=== PATIENT | male | born 1970 | race Caucasian/White ===

== ENCOUNTER → 2017-04-04 | Outpatient (CLI) | payer MEDICAID ==
[~2017-04-04] MED LIST: GADOBUTROL 10 ML VIAL IVP ONE
== END ==
LOC: FIMAGING 19:18
PROVIDERS: ATTEND Psychiatry & Neurology Neurology
DX: M54.14 Radiculopathy, thoracic region (principal); R68.89 Other general symptoms and signs
CPT/HCPCS: A9585

== ENCOUNTER 2017-06-05 21:27 | Emergency (ER) | payer MEDICAID ==
[2017-06-05 21:40] VITALS: TEMP 98.2
[2017-06-05] MEDS ORDERED: NS 1,000 ML IV ONE (22:23)
[2017-06-05 23:01] LABS: % IMMATURE GRANULYOCYTES 0.3 % (0.0-1.1); ABSOLUTE IMMATURE GRANULOCYTES 0.02 10^3/uL (0.00-0.10); ADD DIFF? NO; ADD MORPH? NO; ADD SCAN? NO; ATYPICAL LYMPHOCYTE FLAG 0 (0-99); FRAGMENT RBC FLAG 0 (0-99); HEMATOCRIT 42.4 % (40.0-51.0); HEMOGLOBIN 14.7 g/dL (13.7-17.5); LEFT SHIFT FLG 0 (0-99); LIPEMIA HEMOLYSIS FLAG 90 (0-99); MEAN CELL HEMOGLOBIN 30.2 pg (27.9-34.1); MEAN CELL HEMOGLOBIN CONCENTR. 34.7 g/dL (32.4-36.7); MEAN CELL VOLUME 87.1 fL (81.5-99.8); MEAN PLATELET VOLUME 10.1 fL (8.7-11.7); PLATELET CLUMPS FLAG 0 (0-99); PLATELET COUNT 244 10^3/uL (150-400); RED BLOOD CELL COUNT 4.87 10^6/uL (4.40-6.38); RED CELL DISTRIBUTION WIDTH 12.6 % (11.5-15.2)
[2017-06-05 23:08] LABS: ANION GAP 12 mEq/L (8-16); CALCIUM 9.2 mg/dL (8.5-10.4); CARBON DIOXIDE 18 mEq/l (22-31); CHLORIDE 110 mEq/L (97-110); CREATININE 1.3 mg/dL (0.7-1.3); GLOMERULAR FILTRATION RATE 60; GLUCOSE 84 mg/dL (70-100); POTASSIUM 3.8 mEq/L (3.5-5.2); SODIUM 140 mEq/L (134-144)
[2017-06-06] MEDS ORDERED: LIDOCAINE HCL 4% TOPICAL SOLN 50ML ONE (00:06)
[2017-06-06] MEDS ORDERED: HALOPERIDOL LACT 5 MG/ML INJ IVP ONE (00:12)
[2017-06-06] MEDS ORDERED: LIDOCAINE HCL 4% TOPICAL SOLN 50ML MM ONE (00:25)
[2017-06-06] MEDS ORDERED: NS 1,000 ML IV ONE (00:36)
[2017-06-06 00:37] VITALS: RESP 16
--- NOTE | 2017-06-06 00:58 | EDPHY ---
H & P Stated Complaint: frontal headache stabbing Time Seen by Provider: 06/05/17 22:30 HPI/ROS: Chief Complaint: Headache HPI: 46-year-old male presenting with intermittent headache on the left side of his head. Patient states that has been gradually worsening. It is intermittent, lasting for several seconds. It occurs about 20 times an hour. It is sharp electric type of pain in the left side. At worst is a 10 on 10. Right now he has none. Last occurred several minutes ago. Also been having some left eye blurring associated with this. He has a history of former cocaine use but has been clean for the last 11 months. Denies any fevers or chills. No nausea or vomiting. No neck pain. No numbness or weakness. ROS: 10 point Review of Systems is negative except as noted in the HPI. PMH: Denies Social History: No smoking, no alcohol, recovering cocaine abuse Family History: non-contributory Physical Exam: Gen: Awake, Alert, No Distress HEENT: Nose: no rhinorrhea Eyes: PERRLA, EOMI Mouth: Moist mucosa Neck: Supple, no JVD Chest: nontender, lungs clear to auscultation Heart: S1, S2 normal, no murmur Abd: Soft, non-tender, no guarding Back: no CVA tenderness, no midline tenderness Ext: no edema, non-tender Skin: no rash Neuro: CN II-XII intact, Sensation grossly intact, Strength 5/5 in bilateral upper and lower extremities - Personal History Current Tetanus/Diphtheria Vaccine: Yes Current Tetanus Diphtheria and Acellular Pertussis (TDAP): Yes Tetanus Vaccine Date: <10 yrs - Medical/Surgical History Hx Asthma: Yes Hx Chronic Respiratory Disease: No Hx Diabetes: No Hx Cardiac Disease: No Hx Renal Disease: No Hx Cirrhosis: No Hx Alcoholism: No Hx HIV/AIDS: No Hx Splenectomy or Spleen Trauma: No Other PMH: pancreatitis,cholecystectomy, idiopathic fibromyopathy/ HEMORRHOIDECTOMY. anxiety. transvers myelitis. drug addiction 10 mos clean - Social History Smoking Status: Former smoker Constitutional: Initial Vital Signs Temperature (C) 36.8 C 06/05/17 21:35 Heart Rate 85 06/05/17 21:35 Respiratory Rate 18 06/05/17 21:35 Blood Pressure 116/87 H 06/05/17 21:35 O2 Sat (%) 95 06/05/17 21:35 O2 Delivery Mode Non-Rebreather Mask O2 (L/minute) 15 Allergies/Adverse Reactions: pregabalin [From Lyrica] Allergy (Verified 07/05/16 06:58) Home Medications: Medication Instructions Recorded Albuterol [Proventil Neb] 2.5 mg IH DAILY PRN 06/28/16 traZODone [traZODONE 50MG (*)] 50 mg PO HS 06/28/16 Cyclobenzaprine 06/05/17 Fluvoxamine Maleate 06/05/17 Gralise 06/05/17 Lisinopril 06/05/17 Topiramate 06/05/17 Verapamil [Calan 80MG (*)] 80 mg PO TID #30 tab 06/06/17 Medical Decision Making - Diagnostics Imaging Results: Imaging Impressions Head CT 06/05/17 22:36 Impression: Normal CT of the head. Specifically, a headache source is not identified. Results called and discussed with Kaushal Cordero MD on 06/05/2017 at 23:01 Imaging: Discussed imaging studies w/ call center receptionist Radiologist ED Course/Re-evaluation: 46-year-old male with symptoms consistent cluster headaches. CT scan of the brain is negative. Will give oxygen, intranasal lidocaine and Haldol and reassess. 0100 patient is feeling significantly improved. Headache is nearly gone. Will discharge with follow up with primary care physician who if necessary can arrange for referral to Neurology. Will start patient on verapamil 80 mg 3 times a day as a preventative if his headaches return. - Data Points Laboratory Results: Laboratory Results 06/05/17 22:20 06/05/17 22:20 06/05/17 06/05/17 22:20 22:20 WBC 6.52 10^3/uL 10^3/uL (3.80-9.50) RBC 4.87 10^6/uL 10^6/uL (4.40-6.38) Hgb 14.7 g/dL g/dL (13.7-17.5) Hct 42.4 % % (40.0-51.0) MCV 87.1 fL fL (81.5-99.8) MCH 30.2 pg pg (27.9-34.1) MCHC 34.7 g/dL g/dL (32.4-36.7) RDW 12.6 % % (11.5-15.2) Plt Count 244 10^3/uL 10^3/uL (150-400) MPV 10.1 fL fL (8.7-11.7) Neut % (Auto) 55.0 % % (39.3-74.2) Lymph % (Auto) 32.4 % % (15.0-45.0) [place] % (Auto) 8.3 % % (4.5-13.0) Eos % (Auto) 3.2 % % (0.6-7.6) Baso % (Auto) 0.8 % % (0.3-1.7) Nucleat RBC Rel Count 0.0 % % (0.0-0.2) Absolute Neuts (auto) 3.59 10^3/uL 10^3/uL (1.70-6.50) Absolute Lymphs (auto) 2.11 10^3/uL 10^3/uL (1.00-3.00) Absolute Monos (auto) 0.54 10^3/uL 10^3/uL (0.30-0.80) Absolute Eos (auto) 0.21 10^3/uL 10^3/uL (0.03-0.40) Absolute Basos (auto) 0.05 10^3/uL 10^3/uL (0.02-0.10) Absolute Nucleated RBC 0.00 10^3/uL 10^3/uL (0-0.01) Immature Gran % 0.3 % % (0.0-1.1) Immature Gran # 0.02 10^3/uL 10^3/uL (0.00-0.10) Sodium 140 mEq/L mEq/L (134-144) Potassium 3.8 mEq/L mEq/L (3.5-5.2) Chloride 110 mEq/L mEq/L (97-110) Carbon Dioxide 18 mEq/l L mEq/l (22-31) Anion Gap 12 mEq/L mEq/L (8-16) BUN 18 mg/dL mg/dL (7-23) Creatinine 1.3 mg/dL mg/dL (0.7-1.3) Estimated GFR 60 Glucose 84 mg/dL mg/dL (70-100) Calcium 9.2 mg/dL mg/dL (8.5-10.4) Medications Given: Discontinued Medications Haloperidol Lactate (Haldol Injection) 2.5 mg IVP EDNOW ONE Stop: 06/06/17 00:13 Last Admin: 06/06/17 00:30 Dose: 2.5 mg Sodium Chloride (Ns) 1,000 mls @ 0 mls/hr IV ONCE ONE PRN Reason: Wide Open Stop: 06/05/17 22:24 Last Admin: 06/05/17 22:28 Dose: 1,000 mls Sodium Chloride (Ns) 1,000 mls @ 0 mls/hr IV ONCE ONE PRN Reason: Wide Open Stop: 06/06/17 00:37 Last Admin: 06/06/17 00:37 Dose: 1,000 mls Lidocaine HCl (Lidocaine Hcl 4% Topical Solution) 2 ml MM EDNOW ONE Stop: 06/06/17 00:26 Last Admin: 06/06/17 00:32 Dose: 2 ml Departure - Departure Disposition: Home, Routine, Self-Care Clinical Impression: Cluster headache Condition: Good Instructions: Cluster Headache (ED) Additional Instructions: If her headache returns she may take verapamil 80 mg 3 times a day to prevent further cluster headaches. Follow-up with primary care physician in 2-3 days for re-evaluation. Issue his continue you may require a referral to a neurologist. This can be arranged by her primary care physician. Return to the emergency department for increasing headache, nausea, vomiting, fevers, chills, or any other concerns. Referrals: TEREZA SILVEIRA [Primary Care Provider] - As per Instructions Prescriptions: Verapamil [Calan 80MG (*)] 80 mg PO TID #30 tab
[2017-06-06 01:48] VITALS: BP 113/77; PULSE 72; O2SAT 98
== END 2017-06-06 01:47 | disposition home or self-care (01) ==
DX: G44.009 Cluster headache syndrome, unspecified, not intractable (principal); J45.909 Unspecified asthma, uncomplicated; Z87.891 Personal history of nicotine dependence
CPT/HCPCS: 96374

== ENCOUNTER 2017-06-09 20:50 | Emergency (ER) | payer MEDICAID ==
--- NOTE | 2017-06-09 21:05 | CPEKG ---
Heart Rate: 88 RR Interval: 682 P-R Interval: 152 QRSD Interval: 114 QT Interval: 408 QTC Interval: 494 P [place]: 54 QRS [place]: -14 T Wave [place]: 6 EKG Severity - ABNORMAL ECG - EKG Impression: SINUS RHYTHM EKG Impression: IRBBB AND LPFB Electronically Signed By: Rohan Hampton 09-Jun-2017 21:10:50
[2017-06-09 21:30] LABS: HEMATOCRIT 41.8 % (40.0-51.0); HEMOGLOBIN 14.7 g/dL (13.7-17.5); MEAN CELL HEMOGLOBIN 30.2 pg (27.9-34.1); RED BLOOD CELL COUNT 4.86 10^6/uL (4.40-6.38)
[2017-06-09 21:31] LABS: % IMMATURE GRANULYOCYTES 0.4 % (0.0-1.1); ABSOLUTE IMMATURE GRANULOCYTES 0.03 10^3/uL (0.00-0.10); ADD DIFF? NO; ADD MORPH? NO; ADD SCAN? NO; ATYPICAL LYMPHOCYTE FLAG 0 (0-99); FRAGMENT RBC FLAG 0 (0-99); LEFT SHIFT FLG 0 (0-99); LIPEMIA HEMOLYSIS FLAG 90 (0-99); MEAN CELL HEMOGLOBIN CONCENTR. 35.2 g/dL (32.4-36.7); MEAN PLATELET VOLUME 10.1 fL (8.7-11.7); PLATELET CLUMPS FLAG 0 (0-99); PLATELET COUNT 257 10^3/uL (150-400); RED CELL DISTRIBUTION WIDTH 12.3 % (11.5-15.2)
[2017-06-09] MEDS ORDERED: KETOROLAC 30 MG/1 ML SDV IVP ONE (21:39)
[2017-06-09] MEDS ORDERED: METOCLOPRAMIDE 10 MG/2 ML VIAL IVP ONE (21:39)
[2017-06-09] MEDS ORDERED: DEXAMETHASONE 10 MG/ML VIAL IVP ONE (21:39)
[2017-06-09] MEDS ORDERED: NS 1,000 ML IV ONE (21:39)
--- NOTE | 2017-06-09 21:41 | EDPHY ---
H & P Stated Complaint: seen sunday cluster MASCORRO- tn CP, confusion, MASCORRO, photophobia Time Seen by Provider: 06/09/17 21:08 HPI/ROS: CHIEF COMPLAINT: Migraine HISTORY OF PRESENT ILLNESS: The patient is a 46-year-old man with a history of migraines who was seen here last week with frequent brief headaches and some pain in his right cheek. He was treated for cluster headaches. He states that his symptoms improved somewhat on fluoxetine and lisinopril. He developed a migraine however about an hour ago associated with photophobia and tracking of lights. He also developed an anxiety feeling comma chest discomfort and palpitations. He does not have any history of cardiac disease. He states that he is recovering drug abuser and has been clean for 11 months. He denies any recent drug or alcohol use. He denies any trauma. He denies recent fevers or infections. REVIEW OF SYSTEMS: Constitutional: denies: chills, fever, recent illness, recent injury EENTM: denies: blurred vision, double vision, nose congestion Respiratory: denies: cough, shortness of breath Cardiac: denies: chest pain, irregular heart rate, lightheadedness, palpitations Gastrointestinal/Abdominal: denies: abdominal pain, diarrhea, nausea, vomiting, blood streaked stools Genitourinary: denies: dysuria, frequency, hematuria, pain Musculoskeletal: denies: joint pain, muscle pain Skin: denies: lesions, rash, jaundice, bruising Neurological: denies: headache, numbness, paresthesia, tingling, dizziness, weakness Hematologic/Lymphatic: denies: blood clots, easy bleeding, easy bruising Immunologic/allergic: denies: HIV/AIDS, transplant EXAM: GENERAL: Well-appearing, well-nourished and in no acute distress. HEAD: Atraumatic, normocephalic. EYES: Pupils equal round and reactive to light, extraocular movements intact, sclera anicteric, conjunctiva are normal. ENT: TMs normal, nares patent, oropharynx clear without exudates. Moist mucous membranes. NECK: Normal range of motion, supple without lymphadenopathy or JVD. LUNGS: Breath sounds clear to auscultation bilaterally and equal. No wheezes rales or rhonchi. HEART: Regular rate and rhythm without murmurs, rubs or gallops. ABDOMEN: Soft, nontender, normoactive bowel sounds. No guarding, no rebound. No masses appreciated. BACK: No CVA tenderness, no spinal tenderness, step-offs or deformities EXTREMITIES: Normal range of motion, no pitting or edema. No clubbing or cyanosis. NEUROLOGICAL: Cranial nerves II through XII grossly intact. Normal speech, normal gait. 5/5 strength, normal movement in all extremities, normal sensation PSYCH: Normal mood, normal affect. SKIN: Warm, dry, normal turgor, no visible rashes or lesions. Source: Patient Exam Limitations: No limitations - Personal History Current Tetanus/Diphtheria Vaccine: Yes Current Tetanus Diphtheria and Acellular Pertussis (TDAP): Yes Tetanus Vaccine Date: <10 yrs - Medical/Surgical History Hx Asthma: Yes Hx Chronic Respiratory Disease: No Hx Diabetes: No Hx Cardiac Disease: No Hx Renal Disease: No Hx Cirrhosis: No Hx Alcoholism: No Hx HIV/AIDS: No Hx Splenectomy or Spleen Trauma: No Other PMH: pancreatitis,cholecystectomy, idiopathic fibromyopathy/ HEMORRHOIDECTOMY. anxiety. transvers myelitis. drug addiction 10 mos clean - Family History Significant Family History: No pertinent family hx - Social History Smoking Status: Former smoker Alcohol Use: Sober Drug Use: None Constitutional: Initial Vital Signs Temperature (C) 36.6 C 06/09/17 20:53 Heart Rate 94 06/09/17 20:53 Respiratory Rate 18 06/09/17 20:53 Blood Pressure 148/92 H 06/09/17 20:53 O2 Sat (%) 97 06/09/17 20:53 O2 Delivery Mode Room Air Allergies/Adverse Reactions: pregabalin [From Lyrica] Allergy (Verified 07/05/16 06:58) Home Medications: Medication Instructions Recorded Albuterol [Proventil Neb] 2.5 mg IH DAILY PRN 06/28/16 traZODone [traZODONE 50MG (*)] 50 mg PO HS 06/28/16 Cyclobenzaprine 06/05/17 Fluvoxamine Maleate 06/05/17 Gralise 06/05/17 Lisinopril 06/05/17 Topiramate 06/05/17 Verapamil [Calan 80MG (*)] 80 mg PO TID #30 tab 06/06/17 Metoclopramide [Reglan 10 mg tab 10 mg PO BID PRN #10 tab 06/09/17 (RX)] Medical Decision Making - Diagnostics EKG Interpretation: An EKG obtained and was read and documented in trace view. Please see trace view for full reading and report. Sinus rhythm, unchanged from previous right bundle branch block ED Course/Re-evaluation: 10:30 p.m. the patient is feeling much better. He is relieved with his test results thus far. He declines further blood work or testing. He is asking for oxygen because last time that made his headache better. He is slightly hypoxic when he is asleep and snores loudly. 11:00 p.m. the patient is feeling much better. He is sleepy however and would like to sleep here for another hour or 2 before going home. Otherwise I will prepare his paperwork for discharge. Dr. Cortez is aware if any problems arise. Differential Diagnosis: Partial list of the Differential diagnosis considered include but were not limited to; anxiety, migraine, cluster headache, and although unlikely based on the history and physical exam, I also considered acute coronary disease, PE, pneumothorax, arrhythmia, infection, trauma, tumor, seizure. - Data Points Laboratory Results: Laboratory Results 06/09/17 21:20 06/09/17 21:20 Medications Given: Discontinued Medications Dexamethasone (Decadron Injection) 10 mg IVP EDNOW ONE Stop: 06/09/17 21:40 Last Admin: 06/09/17 21:51 Dose: 10 mg Diphenhydramine HCl (Benadryl Injection) 25 mg IVP EDNOW ONE Stop: 06/09/17 21:40 Last Admin: 06/09/17 21:52 Dose: 25 mg Sodium Chloride (Ns) 1,000 mls @ 0 mls/hr IV ONCE ONE; Wide Open PRN Reason: Protocol Stop: 06/09/17 21:40 Last Admin: 06/09/17 21:48 Dose: 1,000 mls Ketorolac Tromethamine (Toradol) 30 mg IVP EDNOW ONE Stop: 06/09/17 21:40 Last Admin: 06/09/17 21:49 Dose: 30 mg Metoclopramide HCl (Reglan Injection) 10 mg IVP EDNOW ONE Stop: 06/09/17 21:40 Last Admin: 06/09/17 21:53 Dose: 10 mg Departure - Departure Disposition: Home, Routine, Self-Care Clinical Impression: Anxiety about health Migraine headache Qualifiers: Migraine type: unspecified Status migrainosus presence: without status migrainosus Intractability: not intractable Qualified Code(s): G43.909 - Migraine, unspecified, not intractable, without status migrainosus Condition: Fair Instructions: Migraine Headache (ED), Anxiety (ED) Referrals: TEREZA SILVEIRA [Primary Care Provider] - As per Instructions Prescriptions: Metoclopramide [Reglan 10 mg tab (RX)] 10 mg PO BID PRN #10 tab PRN Reason: Headache
[2017-06-09 21:56] LABS: ANION GAP 13 mEq/L (8-16); CALCIUM 9.6 mg/dL (8.5-10.4); CARBON DIOXIDE 18 mEq/l (22-31); CHLORIDE 112 mEq/L (97-110); CREATININE 1.2 mg/dL (0.7-1.3); GLOMERULAR FILTRATION RATE > 60; GLUCOSE 86 mg/dL (70-100); POTASSIUM 4.1 mEq/L (3.5-5.2); SODIUM 143 mEq/L (134-144)
[2017-06-09 22:07] LABS: TROPONIN I < 0.012 ng/mL (0-0.034)
[2017-06-09 23:22] VITALS: BP 140/96; PULSE 63; RESP 20; TEMP 98.1; O2SAT 95
== END 2017-06-09 23:22 | disposition home or self-care (01) ==
DX: G43.909 Migraine, unspecified, not intractable, without status migrainosus (principal); F41.9 Anxiety disorder, unspecified; E86.9 Volume depletion, unspecified
CPT/HCPCS: 96374; J1100; J1200; J1885; J2765

== ENCOUNTER 2017-06-16 06:22 | Emergency (ER) | payer MEDICAID ==
[2017-06-16 06:26] VITALS: TEMP 97.5
[2017-06-16] MEDS ORDERED: DEXAMETHASONE 10 MG/ML VIAL IVP ONE (06:58)
[2017-06-16] MEDS ORDERED: METOCLOPRAMIDE 10 MG/2 ML VIAL IVP ONE (06:58)
[2017-06-16] MEDS ORDERED: NS 1,000 ML IV ONE (06:58)
--- NOTE | 2017-06-16 07:14 | EDPHY ---
H & P Time Seen by Provider: 06/16/17 06:57 HPI/ROS: CHIEF COMPLAINT: Migraine headache HISTORY OF PRESENT ILLNESS: 46-year-old male with history of frequent migraine headaches presents with a typical migraine headache. Onset of headache 2 weeks ago. He was seen in this emergency department and given a prescription for verapamil. The verapamil has helped his almost daily headaches. However he awoke this morning at 6:00 a.m. with a severe left-sided frontal headache, associated with 1 episode of vomiting. He also has visual scotomata. No weakness or numbness. REVIEW OF SYSTEMS: Complete 10 system review of systems is negative except as noted in the HPI. Past Medical/Surgical History: Migraine headache asthma Social History: Former drug abuse, now sober Smoking Status: Former smoker Physical Exam: General Appearance: Alert, pleasant Eyes: Pupils equal and round, no conjunctival pallor or injection ENT, Mouth: Mucous membranes moist Neck: Normal inspection Respiratory: Lungs are clear to auscultation Cardiovascular: Regular rate and rhythm Gastrointestinal: Abdomen is soft and nontender Neurological: Alert, oriented x3, cranial nerves II through XII intact, motor 5 /5, sensory intact to light touch, normal gait Skin: Warm and dry, no rash Extremities: Nontender, no pedal edema Psychiatric: Mood and affect normal Constitutional: Initial Vital Signs Temperature (C) 36.4 C 06/16/17 06:24 Heart Rate 107 H 06/16/17 06:24 Respiratory Rate 18 06/16/17 06:24 Blood Pressure 110/91 H 06/16/17 06:24 O2 Sat (%) 96 06/16/17 06:24 O2 Delivery Mode Nasal Cannula O2 (L/minute) 2 Allergies/Adverse Reactions: pregabalin [From Lyrica] Allergy (Verified 06/16/17 06:26) Home Medications: Medication Instructions Recorded Albuterol [Proventil Neb] 2.5 mg IH DAILY PRN 06/28/16 traZODone [traZODONE 50MG (*)] 50 mg PO HS 06/28/16 Cyclobenzaprine 06/05/17 Fluvoxamine Maleate 06/05/17 Gralise 06/05/17 Lisinopril 06/05/17 Topiramate 06/05/17 Verapamil [Calan 80MG (*)] 80 mg PO TID #30 tab 06/06/17 Metoclopramide [Reglan 10 mg tab 10 mg PO BID PRN #10 tab 06/09/17 (RX)] Medical Decision Making ED Course/Re-evaluation: This patient presents with a typical migraine headache. Decadron, Benadryl and Reglan IV given. Oxygen 2 L by nasal cannula placed the patient request. 8:30 a.m.-feels much better after the IV medications and oxygen and would like to go home. Differential Diagnosis: Headache including but not limited to subarachnoid hemorrhage, migraine headache , tension headache and infectious causes such as meningitis, pharyngitis and sinusitis. - Data Points Medications Given: Discontinued Medications Dexamethasone (Decadron Injection) 10 mg IVP EDNOW ONE Stop: 06/16/17 06:59 Last Admin: 06/16/17 07:17 Dose: 10 mg Diphenhydramine HCl (Benadryl Injection) 25 mg IVP EDNOW ONE Stop: 06/16/17 06:59 Last Admin: 06/16/17 07:17 Dose: 25 mg Sodium Chloride (Ns) 1,000 mls @ 0 mls/hr IV ONCE ONE; Wide Open PRN Reason: Protocol Stop: 06/16/17 06:59 Last Admin: 06/16/17 07:18 Dose: 1,000 mls Metoclopramide HCl (Reglan Injection) 10 mg IVP EDNOW ONE Stop: 06/16/17 06:59 Last Admin: 06/16/17 07:17 Dose: 10 mg Departure - Departure Disposition: Home, Routine, Self-Care Clinical Impression: Migraine headache Qualifiers: Migraine type: without aura Status migrainosus presence: without status migrainosus Intractability: not intractable Qualified Code(s): G43.009 - Migraine without aura, not intractable, without status migrainosus Condition: Good Instructions: Migraine Headache (ED) Additional Instructions: Keep your appointment with the neurologist as scheduled. Return with any concerns. Referrals: TEREZA SILVEIRA [Primary Care Provider] - As per Instructions Migue Serrato MD [Medical Doctor] - As per Instructions
[2017-06-16 08:08] VITALS: BP 126/81; PULSE 76; RESP 16; O2SAT 98
== END 2017-06-16 08:37 | disposition home or self-care (01) ==
DX: G43.009 Migraine without aura, not intractable, without status migrainosus (principal); E86.9 Volume depletion, unspecified; Z87.891 Personal history of nicotine dependence
CPT/HCPCS: 96374; J1100; J1200; J2765

== ENCOUNTER 2017-12-04 01:22 | Emergency (ER) | payer MEDICAID ==
--- NOTE | 2017-12-04 01:45 | EDPHY ---
H & P Stated Complaint: r foot pain no trauma HPI/ROS: HPI CHIEF COMPLAINT: Right foot pain. HISTORY OF PRESENT ILLNESS: This patient is a 47-year-old male presents emergency room right foot pain. He states he has had right foot pain for 3 days. It is located on the plantar region of his right foot lateral aspect towards the front of his foot. He denies any trauma. States is unclear if he injured his foot. He denies any fever abnormal swelling. He states progressively gotten worse worse when he ambulates and walks on his foot. Clinically when I press in the bottom his foot at the plantar region this gives him discomfort is reproducible on exam. I do not appreciate a swelling, redness, foreign body. Past Medical History: History of migraine headaches, asthma Past Surgical History: Gallbladder removal. Social History: History of drug abuse. Sober. Family History: Noncontributory ROS REVIEW OF SYSTEMS: A comprehensive 10 point review of systems is otherwise negative aside from elements mentioned in the history of present illness. Exam Constitutional triage nursing summary reviewed, vital signs reviewed, awake/ alert. Eyes normal conjunctivae and sclera, EOMI, PERRLA. HENT normal inspection, atraumatic, moist mucus membranes, no epistaxis, neck supple/ no meningismus, no raccoon eyes. Respiratory clear to auscultation bilaterally, normal breath sounds, no respiratory distress, no wheezing. Cardiovascular rate normal, regular rhythm, no murmur, no edema, distal pulses normal. Gastrointestinal soft, non-tender, no rebound, no guarding, normal bowel sounds, no distension, no pulsatile mass. Genitourinary no CVA tenderness. Musculoskeletal right foot: Neurovascularly intact. Good distal pulse. Good cap refill. Warm foot, warm extremity, no abnormal swelling. Focal tenderness in 1 particular area along the plantar region towards the front of the foot right lateral aspect. Reproducible on exam no foreign bodies palpated. no midline vertebral tenderness, full range of motion, no calf swelling, no tenderness of extremities, no meningismus, good pulses, neurovascularly intact. Skin pink, warm, & dry, no rash, skin atraumatic. Neurologic awake, alert and oriented x 3, AAOx3, moves all 4 extremities equally, motor intact, sensory intact, CN II-XII intact, normal cerebellar, normal vision, normal speech. Psychiatric normal mood/affect. Heme/Lymph/Immune no lymphadenopathy. Differential Diagnosis: Includes but is not limited to in a particular order, foot contusion, fracture, plantar fasciitis, soft tissue injury, foreign body Medical Decision Making: Plan for this patient recommend anti-inflammatory pain medicine, x-ray right foot. Re-evaluate. Re-evaluation: X-ray of the right foot unremarkable. I do not appreciate foreign bodies or bony abnormality. Patient be placed in a walking boot. I recommend anti-inflammatory pain medicine. I also given instructions on plantar fasciitis. Recommend following up with Podiatry. Recommend icing his foot and staying off of it. Return precautions discussed he understands. Clinically most likely has plantar fasciitis. Source: Patient - Personal History Current Tetanus/Diphtheria Vaccine: Yes Current Tetanus Diphtheria and Acellular Pertussis (TDAP): Yes Tetanus Vaccine Date: <10 yrs - Medical/Surgical History Hx Asthma: Yes Hx Chronic Respiratory Disease: No Hx Diabetes: No Hx Cardiac Disease: No Hx Renal Disease: No Hx Cirrhosis: No Hx Alcoholism: No Hx HIV/AIDS: No Hx Splenectomy or Spleen Trauma: No Other PMH: pancreatitis,cholecystectomy, idiopathic fibromyopathy/ HEMORRHOIDECTOMY. anxiety, migraines. transvers myelitis. drug addiction 10 mos clean - Social History Smoking Status: Former smoker Constitutional: Initial Vital Signs Temperature (C) 36.5 C 12/04/17 01:31 Heart Rate 87 12/04/17 01:31 Respiratory Rate 18 12/04/17 01:31 Blood Pressure 115/78 12/04/17 01:31 O2 Sat (%) 97 12/04/17 01:31 O2 Delivery Mode Room Air Allergies/Adverse Reactions: pregabalin [From Lyrica] Allergy (Verified 06/16/17 06:26) Home Medications: Medication Instructions Recorded Albuterol [Proventil Neb] 2.5 mg IH DAILY PRN 06/28/16 traZODone [traZODONE 50MG (*)] 50 mg PO HS 06/28/16 Fluvoxamine Maleate 06/05/17 Gralise 06/05/17 Topiramate 06/05/17 Verapamil [Calan 80MG (*)] 80 mg PO TID #30 tab 06/06/17 Ibuprofen [Motrin (*)] 800 mg PO Q6-8PRN #10 tab 12/04/17 Medical Decision Making - Data Points Medications Given: Discontinued Medications Ibuprofen (Motrin) 800 mg PO EDNOW ONE Stop: 12/04/17 01:53 Last Admin: 12/04/17 01:55 Dose: 800 mg Departure - Departure Disposition: Home, Routine, Self-Care Clinical Impression: Foot pain, right Condition: Good Instructions: Arthralgia (ED), Plantar Fasciitis (ED) Additional Instructions: 1. Anti-inflammatory pain medicine. Ibuprofen. 2. Ice your foot. 3. Stay off it. 4. Follow up with Podiatry 5. return to the er if worsening symptoms Referrals: TEREZA SILVEIRA [Primary Care Provider] - As per Instructions Linda Meyer DPM [Doctor of Podiatric Medicine] - As per Instructions Prescriptions: Ibuprofen [Motrin (*)] 800 mg PO Q6-8PRN #10 tab
[2017-12-04] MEDS ORDERED: IBUPROFEN 800 MG TAB PO ONE (01:52)
[2017-12-04 02:59] VITALS: BP 144/76; PULSE 74; RESP 16; TEMP 97.9; O2SAT 93
== END 2017-12-04 02:59 | disposition home or self-care (01) ==
DX: M79.671 Pain in right foot (principal); J45.909 Unspecified asthma, uncomplicated; Z87.891 Personal history of nicotine dependence
CPT/HCPCS: L4386

== ENCOUNTER 2018-03-13 14:47 | Emergency (ER) | payer MEDICAID ==
[2018-03-13] MEDS ORDERED: TDAP ADULT 0.5 ML INJ (BOOSTRIX) IM ONE (15:11)
--- NOTE | 2018-03-13 15:26 | EDPHY ---
H & P Time Seen by Provider: 03/13/18 14:54 HPI/ROS: CHIEF COMPLAINT: Laceration right index finger HISTORY OF PRESENT ILLNESS: 47-year-old male with out-of-date tetanus sustained accidental laceration to his right index finger distal phalanx palmar aspect and he was using a butchers blade cutting meat. No paresthesia. Occurred shortly prior to arrival. PHYSICAL EXAM (Prior to examination, patient consented to physical exam, hands were washed and my usual and customary physical exam procedures followed) 1) GENERAL: Well-developed, well-nourished, alert and oriented. Appears anxious. 2) HEAD: Normocephalic 3) HEENT: sclera anicteric 4) LUNGS: Breathing comfortably. 5) SKIN: Right index finger distal phalanx palmar aspect 1.5 cm well- demarcated linear superficial laceration. Not through and through. 6) MUSCULOSKELETAL: FDP, FDS function intact. No signs of infection. Negative kanavel. 7) NEUROLOGIC: Full sensation two-point discrimination intact. Smoking Status: Former smoker Constitutional: Initial Vital Signs Temperature (C) 37.1 C 03/13/18 14:51 Heart Rate 111 H 03/13/18 14:51 Respiratory Rate 16 03/13/18 14:51 Blood Pressure 128/95 H 03/13/18 14:51 O2 Sat (%) 94 03/13/18 14:51 O2 Delivery Mode Room Air Allergies/Adverse Reactions: pregabalin [From Lyrica] Allergy (Verified 03/13/18 14:50) Home Medications: Medication Instructions Recorded Albuterol [Proventil Neb] 2.5 mg IH DAILY PRN 06/28/16 traZODone [traZODONE 50MG (*)] 50 mg PO HS 06/28/16 Fluvoxamine Maleate 06/05/17 Gralise 06/05/17 Verapamil [Calan 80MG (*)] 80 mg PO TID #30 tab 06/06/17 Ibuprofen [Motrin (*)] 800 mg PO Q6-8PRN #10 tab 12/04/17 Vyvanse 03/13/18 MDM/Departure - MDM Procedures: Procedure: Laceration repair. I explained the indications, risks and benefits for both laceration repair and anesthetic administration. Verbal consent was obtained from the patient . The laceration on the right index finger was anesthetized using 0.5% bupivicaine without epinephrine digital nerve block. After anesthetic administered the patient was observed for a period of time and had no apparent adverse effects. The wound was cleaned, prepped, draped in normal sterile fashion and explored to its base. No foreign body seen, no foreign bodies palpated. There were no deep structures involved. The wound was repaired with 4 simple interrupted 5 O Prolene sutures. The wound repair was simple. The procedure was performed by myself. Patient has been informed that scarring will occur, although efforts have been made to minimize this. Medications Given: Discontinued Medications Diphtheria/Tetanus/Acell Pertussis (Boostrix) 0.5 ml IM .ONCE ONE Stop: 03/13/18 15:12 Last Admin: 03/13/18 15:14 Dose: 0.5 ml ED Course/Re-evaluation: Care of patient under supervision of secondary supervising physician Dr Hampton . - Depart Disposition: Home, Routine, Self-Care Clinical Impression: Laceration of right index finger Qualifiers: Encounter type: initial encounter Damage to nail status: without damage Foreign body presence: without foreign body Qualified Code(s): S61.210A - Laceration without foreign body of right index finger without damage to nail, initial encounter Condition: Good Instructions: Care For Your Stitches (ED), Laceration (ED) Additional Instructions: Return to the ER if you develop redness, swelling, discharge, warmth to the wound, red streaks going up your arm or any other symptoms that concern you. Referrals: Return, to the ER in 10 days for suture removal [Other] - As per Instructions
[2018-03-13 16:09] VITALS: BP 148/103
== END 2018-03-13 16:14 | disposition home or self-care (01) ==
PROC: 0HQFXZZ Repair Right Hand Skin, External Approach (ICD-10-PCS; principal; 2018-03-13)
DX: S61.210A Laceration without foreign body of right index finger without damage to nail, initial encounter (principal); Z23 Encounter for immunization; Z87.891 Personal history of nicotine dependence; W26.0XXA Contact with knife, initial encounter; Y99.8 Other external cause status; Y93.G1 Activity, food preparation and clean up

== ENCOUNTER 2018-11-05 15:14 | Emergency (ER) | payer MEDICAID ==
--- NOTE | 2018-11-05 15:39 | EDPHY ---
H & P Time Seen by Provider: 11/05/18 15:28 HPI/ROS: CHIEF COMPLAINT: Left knee pain HISTORY OF PRESENT ILLNESS: 48-year-old male presents with left knee pain. He was skateboarding prior to arrival, fell off the skateboard and landed onto his left lower extremity. Immediate onset of moderate left knee pain. The pain increases with weight-bearing and with movement. Took Aleve prior to arrival with some relief. No other injuries. ROS: No numbness, weakness, bleeding, syncopal episode, other injury. Past Medical/Surgical History: Transverse myelitis Substance abuse, sober Smoking Status: Former smoker Physical Exam: Alert, pleasant, does not appear in pain Extremities: Left knee-normal inspection, no tenderness over the patella or knee joint, no pain with varus or valgus stress; tenderness on the lateral aspect of the lower thigh Skin: Intact, no ecchymosis Neuro: Motor and sensory intact Vascular: Capillary refill brisk distally Constitutional: Initial Vital Signs Temperature (C) 36.3 C 11/05/18 15:17 Heart Rate 114 H 11/05/18 15:17 Respiratory Rate 16 11/05/18 15:17 Blood Pressure 135/102 H 11/05/18 15:17 O2 Sat (%) 93 11/05/18 15:17 O2 Delivery Mode Room Air Allergies/Adverse Reactions: pregabalin [From Lyrica] Allergy (Verified 11/05/18 15:21) Home Medications: Medication Instructions Recorded Albuterol [Proventil Neb] 2.5 mg IH DAILY PRN 06/28/16 traZODone [traZODONE 50MG (*)] 50 mg PO HS 06/28/16 Fluvoxamine Maleate 06/05/17 Gralise 06/05/17 Verapamil [Calan 80MG (*)] 80 mg PO TID #30 tab 06/06/17 Ibuprofen [Motrin (*)] 800 mg PO Q6-8PRN #10 tab 12/04/17 Vyvanse 03/13/18 Medical Decision Making - Diagnostics Imaging Results: Imaging Impressions Knee X-Ray 11/05/18 15:28 Impression: Mild lateral tilt of the patella without subluxation. Otherwise, normal left knee series. Imaging: I viewed and interpreted images myself ED Course/Re-evaluation: This pt presents with a LLE strain after a fall. Xray is unremarkable. Has knee immob/crutches at home. Will take Aleve bid. f/u PCP. Departure - Departure Disposition: Home, Routine, Self-Care Clinical Impression: Muscle strain of left thigh Qualifiers: Encounter type: initial encounter Qualified Code(s): S76.912A - Strain of unspecified muscles, fascia and tendons at thigh level, left thigh, initial encounter Condition: Good Instructions: Muscle Strain (ED) Additional Instructions: Ice for 20 min every 2 hr while pain persists. Aleve 1 tablet twice daily as directed on the packaging. Elevate your leg whenever possible. Referrals: TEREZA SILVEIRA [Primary Care Provider] - As per Instructions
[2018-11-05 15:59] VITALS: BP 129/93
== END 2018-11-05 16:01 | disposition home or self-care (01) ==
DX: S83.002A Unspecified subluxation of left patella, initial encounter (principal); V00.131A Fall from skateboard, initial encounter; Y93.51 Activity, roller skating (inline) and skateboarding; Y92.9 Unspecified place or not applicable; Y99.9 Unspecified external cause status

== ENCOUNTER 2019-01-23 19:15 | Emergency (ER) | payer MEDICAID ==
[2019-01-23] MEDS ORDERED: IPRATROPIUM/ALBUTEROL 3 ML DEYVIAL IH ONE (20:45)
--- NOTE | 2019-01-23 21:33 | EDPHY ---
H & P Time Seen by Provider: 01/23/19 19:51 Smoking Status: Former smoker Constitutional: Initial Vital Signs Temperature (C) 37.6 C 01/23/19 19:18 Heart Rate 128 H 01/23/19 19:18 Respiratory Rate 20 01/23/19 19:18 Blood Pressure 106/79 01/23/19 19:18 O2 Sat (%) 92 01/23/19 19:18 O2 Delivery Mode Room Air Allergies/Adverse Reactions: pregabalin [From Lyrica] Allergy (Verified 01/23/19 19:21) Home Medications: Medication Instructions Recorded Albuterol [Proventil Neb] 2.5 mg IH DAILY PRN 06/28/16 traZODone [traZODONE 50MG (*)] 50 mg PO HS 06/28/16 Fluvoxamine Maleate 06/05/17 Gralise 06/05/17 Verapamil [Calan 80MG (*)] 80 mg PO TID #30 tab 06/06/17 Ibuprofen [Motrin (*)] 800 mg PO Q6-8PRN #10 tab 12/04/17 Vyvanse 03/13/18 MDM/Departure - MDM Imaging Results: Imaging Impressions Chest X-Ray 01/23/19 19:54 Impression: Clear lungs. No pneumonia or pneumothorax. Medications Given: Discontinued Medications Albuterol/Ipratropium (Duoneb) 3 ml IH EDNOW ONE Stop: 01/23/19 20:46 Last Admin: 01/23/19 20:57 Dose: 3 ml - Depart Disposition: Home, Routine, Self-Care Clinical Impression: Cough Condition: Good Instructions: Acute Cough (ED) Additional Instructions: Follow-up with your primary care doctor within the week for recheck Use your inhaler every 4-6 hours for the next 2-3 days with spacer If symptoms worsen or new symptoms develop return to the emergency department for recheck Referrals: TEREZA SILVEIRA [Primary Care Provider] - As per Instructions
[2019-01-23 21:42] VITALS: BP 107/83
== END 2019-01-23 21:41 | disposition home or self-care (01) ==
DX: R05 Cough (principal); Z87.891 Personal history of nicotine dependence